=== PATIENT | male | born 1965 | race Caucasian/White ===

== ENCOUNTER 2019-07-31 16:32 | Emergency (ER) | payer OTHER ==
[~2019-07-31] VITALS: Ht 177.8 cm; Wt 114.5 kg
[2019-07-31 17:39] LABS: BASO # 0.1 10^3/uL (0.0-0.2); BASO % 1.3 % (0.0-1.0); EOS # 0.2 10^3/uL (0.0-0.5); HEMATOCRIT 43.9 % (42.0-52.0); HEMOGLOBIN 14.5 g/dl (13.5-17.5); LYMPH # 1.5 10^3/uL (1.5-5.0); LYMPH % 28.7 % (24.0-44.0); MEAN CORPUSCULAR HEMOGLOBIN 28.8 pg (27.0-33.0); MEAN CORPUSCULAR VOLUME 87.1 fl (80.0-96.0); MONO # 0.8 10^3/uL (0.0-0.8); MONO % 15.2 % (0.0-5.0); NEUTROPHILS # 2.6 10^3/uL (1.5-8.5); NEUTROPHILS % 49.5 % (36.0-66.0); PLATELET COUNT, AUTOMATED 219 10^3/uL (150-450); RED BLOOD COUNT 5.04 10^6/uL (4.30-6.10); WHITE BLOOD COUNT 5.3 10^3/uL (4.0-10.0)
--- NOTE | 2019-07-31 17:49 | REP ---
Chest x-ray: Two views. History: Cough . Comparison study: No comparison . Findings: The lungs are symmetrically aerated. There is increased density overlying the left heart border on the frontal view and anteriorly over the heart on the lateral film consistent with a lingular infiltrate. Pleural angles are sharp. Heart size is normal. The aorta somewhat tortuous. Pulmonary vasculature is not increased. No bony abnormalities seen. Impression: Lingular infiltrate consistent with pneumonia. Electronically Signed by Severo Benitez MD 07/31/2019 05:40 P
[2019-07-31 18:08] LABS: BLOOD UREA NITROGEN 12 MG/DL (7-18); CALCIUM LEVEL 8.4 MG/DL (8.5-10.1); CARBON DIOXIDE LEVEL 26 MEQ/L (21-32); CHLORIDE LEVEL 106 MEQ/L (98-107); CK-MB VALUE MASS < 1.0 NG/ML (<3.6); CPK CREATINE PHOSPHOKINASE 138 U/L (39-308); CREATININE FOR GFR 0.76 MG/DL (0.70-1.30); GLOMERULAR FILTRATION RATE > 60.0 (>56); GLUCOSE, FASTING 90 MG/DL (70-100); MB/CK RELATIVE INDEX 0.72 (< OR =4); POTASSIUM SERUM 3.8 MEQ/L (3.5-5.1); SODIUM LEVEL 138 MEQ/L (136-145); TROPONIN I < 0.02 NG/ML (< 0.10)
[2019-07-31] MEDS ORDERED: cefTRIAXone SOD 1 GM in D5W MINI-BAG PLUS 50 ML IV ONE (18:15)
[2019-07-31] MEDS ORDERED: AZITHROMYCIN INJ 500 MG, VIAL MATE ADAPTER 1 EACH in D5W 250 ML IV ONE (18:15)
[2019-07-31] MEDS ORDERED: ZITHTAB PO (20:28)
[2019-07-31 20:40] VITALS: BP 159/95
--- NOTE | 2019-08-01 18:40 | ECGEPIP ---
[facility] - ED Test Date: 2019-07-31 Pat Name: YOVANI MULLIGAN Department: Room: - Gender: Male Technology Director: [place] : 1965 Requested By: Dre Sanchez Order Number: [id number] Reading MD: Makenna Mosquera Measurements Intervals [place] Rate: 86 P: 53 DC: 182 QRS: 63 QRSD: 84 T: 29 QT: 342 QTc: 410 Interpretive Statements SINUS RHYTHM NONSPECIFIC T-WAVE ABNORMALITY NO PRIOR Electronically Signed on 08-01-2019 18:39:56 EST by Makenna Mosquera
== END 2019-07-31 20:51 | disposition home or self-care (01) ==
LOC: M ED 16:32
DX: J18.9 Pneumonia, unspecified organism (principal); R94.31 Abnormal electrocardiogram [ECG] [EKG]; Z87.891 Personal history of nicotine dependence
CPT/HCPCS: 71046; 80048; 82550; 82553; 84484; 85025; 93005; 93041; 94760; 96365; 96367; 99284; J0456; J0696

== ENCOUNTER → 2024-02-13 | Outpatient (REF) | payer OTHER ==
[~2024-02-13] MED LIST: ZITHTAB PO
[2024-02-13 11:21] LABS: APPEARANCE, URINE CLEAR (CLEAR); BACTERIA, URINE AUTO NEGATIVE (NEGATIVE); BILIRUBIN, URINE AUTO NEGATIVE (NEGATIVE); BLOOD, URINE BLOOD NEGATIVE (NEGATIVE); COLOR, URINE YELLOW (YELLOW); GLUCOSE, URINE (UA) AUTO NEGATIVE (NEGATIVE); KETONE, URINE AUTO NEGATIVE (NEGATIVE); LEUKOCYTE ESTERASE, URINE AUTO NEGATIVE (NEGATIVE); NITRITE, URINE AUTO NEGATIVE (NEGATIVE); PROTEIN, URINE AUTO NEGATIVE (NEGATIVE); RBC, URINE AUTO 0 /HPF (0-3); SQUAMOUS EPITHELIAL CELL UR AU 0 /HPF (0-6); UROBILINOGEN, URINE AUTO 0.2 mg/dL (0.0-2.0); WBC, URINE AUTO 0 /HPF (0-3)
== END ==
LOC: M SMT 10:02
PROVIDERS: ATTEND Physician Assistant
DX: R10.9 Unspecified abdominal pain (principal)

== ENCOUNTER 2024-07-08 10:39 | Day surgery (SDC) | payer OTHER ==
[~2024-07-08] VITALS: Ht 175.3 cm; Wt 122.4 kg
[~2024-07-08 10:39] MED LIST changes: +LISI10TA24 PO; +MIDAZOLAM INJ 2MG/2ML VIAL As Ordered ONE; +ROSU40TA81 PO; +TAMS1CAP17 PO; +TIRZ2.5P3 SC
[2024-07-08] MEDS ORDERED: fentaNYL 100 MCG/2 ML INJECTION As Ordered ONE (13:20)
[2024-07-08] MEDS ORDERED: propofoL 200 MG/20 ML VIAL As Ordered ONE (13:21)
[2024-07-08] MEDS: LIDOCAINE 3.5 % 1ML OPHTH TOPICAL GEL OU ONE (13:34)
[2024-07-08] MEDS: POVIDONE-IODINE 5% OPHTH PREP SOL 30ML As Ordered ONE (14:51)
[2024-07-08] MEDS: LIDOCAINE 2% W/EPINEPHRINE 20ML VIAL **PRES FREE As Ordered ONE (14:51)
[2024-07-08 15:17] VITALS: BP 128/75; TEMP 97.9; O2SAT 98
== END 2024-07-08 15:49 | disposition home or self-care (01) ==
LOC: M SDC 10:39
PROVIDERS: ATTEND Ophthalmology
DX: H02.831 Dermatochalasis of right upper eyelid (principal); H02.834 Dermatochalasis of left upper eyelid; E11.9 Type 2 diabetes mellitus without complications; G47.30 Sleep apnea, unspecified; Z68.41 Body mass index [BMI] 40.0-44.9, adult; Z79.899 Other long term (current) drug therapy
CPT/HCPCS: 15822; 88300; J2250; J3010

== ENCOUNTER → 2024-09-24 | Outpatient (CLI) | payer OTHER ==
[~2024-09-24] MED LIST changes: -MIDAZOLAM INJ 2MG/2ML VIAL As Ordered ONE
== END ==
LOC: M PLARAD 08:15
PROVIDERS: ATTEND Student in an Organized Health Care Education/Training Program
DX: M54.50 Low back pain, unspecified (principal)